=== PATIENT | male | born 1995 | race Caucasian/White ===

== ENCOUNTER 2021-06-12 00:26 | Emergency (ER) | payer BC ==
[~2021-06-12 00:26] MED LIST: ELIQUIS5 MG PO; MEDROL4 MG PO; NORCO 5-325 TA1 EACH PO; PREDNISONE20 MG PO; VALIUM2 MG PO
[2021-06-12 01:55] LABS: HEMOGLOBIN 15.1 gm/dl (14.0-17.5); WHITE BLOOD COUNT 8.2 K/UL (4.5-11.0)
[2021-06-12 02:47] LABS: BUN/CREATININE RATIO 11 (0-10)
== END 2021-06-12 06:00 | disposition home or self-care (01) ==
LOC: ER1 00:26
PROVIDERS: Physician Assistant
DX: R07.9 Chest pain, unspecified (principal); R06.02 Shortness of breath; Z20.822 Contact with and (suspected) exposure to COVID-19; Z88.0 Allergy status to penicillin
CPT/HCPCS: 0240U; 80053; 82550; 82553; 83874; 83880; 84484; 85025; 85610; 85730; 93005; 99285; Q9967